=== PATIENT | male | born 1955 | race Caucasian/White ===

== ENCOUNTER 2020-07-28 02:47 | Inpatient (IN) | payer SELFPAY ==
[~2020-07-28] VITALS: Ht 182.9 cm; Wt 90.9 kg
--- NOTE | ~2020-07-28 | HEMODYNAMI ---
PATIENT:CARMELO MACDONALD MEDICAL RECORD: [id number] : 57 LOCATION:[facility] D.2123 [facility]# [id number] ADMISSION DATE: 07/28/20 Generatedon:111:24 Patient name: CARMELO MACDONALD Patient #: [id number] SSN: [id number] : 1955 Date of study: 07/29/2020 Page: Of Hemodynamic Procedure Report Patient Data Patient Demographics Procedure consent was obtained First Name: CARMELO Gender: Male Last Name: TORRES : 1955 Patient #: [id number] Age: 64 year(s) Race: SSN: [id number] Additional ID: [id number] Contact details [address]: [address] [place] [address] State: [place] City: [place] Zip code: [address] Past Medical History Allergies: No known allergies Admission Admission Data Admission Date: 07/28/2020 Admission Time: 17:42 Arrival Date: 07/29/2020 Arrival Time: 0:00 Admit Source: Other Insurance Payor: None Room #: D.2123 [facility] #: [id number] Height (in.): 72 BSA: 2.13 (m2) Height (cm.): 182.88 BMI: 27.18 (kg/m2) Weight (lbs.): 200.4 Weight (kg.): 90.9 Lab Results Lab Result Date: 07/29/2020 Lab Result Time: 0:00 Biochemistry Name Units Result Min Max BUN mg/dl 18 --(---*)-- 7 18 Creatinine mg/dl 1.2 --(---*)-- 0.6 1.3 eGFR ml/min 64.88728 *-(----)-- 90 120 NONAFRICAN Troponin l ng/ml 0.017 --(-*--)-- 0 0.06 CBC Name Units Result Min Max Hematocrit % 41.1 -*(----)-- 42 54 Hemoglobin g/dl 14.1 --(*---)-- 13.5 17.5 Procedure Procedure Types Cath Procedure Diagnostic Procedure [facility] w/Coronaries FFR/IVUS FFR Initial Sedation Charges Moderate Sedation 25-39 minutes PCI Procedure Coronary Stent Coronary Stent Initial Hemochron ACT Test Procedure Description Procedure Date Procedure Date: 07/29/2020 Procedure Start Time: 10:52 Procedure End Time: 11:20 Procedure Staff Name Function Phillip Garza MD Performing Physician Genevieve Ortez RT Monitor Yareli Prater RT Scrub Aureliano Moon RN Nurse Procedure Data Cath Procedure Fluoroscopy Diagnostic fluoroscopy Total fluoroscopy Time: 7.4 time: 7.4 min min Diagnostic fluoroscopy Total fluoroscopy dose: 890 dose: 890 mGy mGy Contrast Material Contrast Material Type Amount (ml) Isovue 370 147 Entry Location Entry Primary Successful Side Size Upsize Upsize Entry Closure Succes sful Closure Location (Fr) 1 (Fr) 2 (Fr) Remarks Device Remarks Femoral Right 5 Fr 6 Fr Exoseal artery Short Estimated blood loss: 10 ml Diagnostic catheters Device Type Used For End Catheter Placement MULTIPACK JL 4.0 5Fr Procedure catheter MULTIPACK 3DRC 5Fr Procedure catheter MULTIPACK Pigtail 5 Fr catheter DIAGNOSTIC 6Fr JL 4.0 Procedure catheter ([id number]) Procedure Complications No complications Procedure Medications Medication Administration Route Dosage 0.9% NaCl I.V. 100 ml/hr Oxygen etCO2 Nasal cannula 2 l/min Heparin Flush Bag added to field 2 bags (1000units/500ml NS) Lidocaine 2% added to field 20 Versed I.V. 1 mg Fentanyl I.V. 50 mcg Heparin Bolus I.V. 5000 units Integrilin (Bolus I.V. 8.5 ml 2mg/ml) Integrilin (Bolus wasted 1.5 ml 2mg/ml) Versed I.V. 1 mg Fentanyl I.V. 50 mcg Plavix P.O. 600 mg Hemodynamics Rest BSA: 2.13 (m2) HGB: 14.1 (g/dl) O2 Consumption: Estimated: 255.8 (ml/min) O2 Con sumption indexed: Estimated:120.09 (ml/min/m) Heart Rate: 78 (bpm) Pressure Samples Time Site Value (mmHg) Purpose Heart Use Rate(bpm) 10:58 LV 72/5,5 Snapshot 75 Gradients Valve Time Site Site Mean SEP/DFP Peak To Heart Use 1 2 (mmHg) (sec/min) Peak Rate (mmHg) (bpm) Aortic 10:58 LV AO 74 Snapshots Pre Cath Intra NCS Post Cath Vital Signs Time Heart Resp SPO2 etCO2 NIBP (mmHg) Rhythm Pain Sedation Rate (ipm) (%) (mmHg) Status Level (bpm) 10:50:45 78 19 87 56.2 116/69(84) NSR 0 (11) 10(A) , No pain 10:54:53 78 18 91 36 123/71(92) NSR 0 (11) 10(A) , No pain 10:59:03 76 20 80 33 122/70(94) NSR 0 (11) 10(A) , No pain 11:03:11 76 20 86 47.2 120/78(95) NSR 0 (11) 10(A) , No pain 11:07:21 77 19 88 35.9 119/69(94) NSR 0 (11) 10(A) , No pain 11:11:27 80 21 91 33.7 131/81(99) NSR 0 (11) 10(A) , No pain 11:15:37 77 22 93 46.5 140/81(109) NSR 0 (11) 10(A) , No pain 11:19:46 77 21 94 42.7 153/85(122) NSR 0 (11) 10(A) , No pain 11:23:56 75 22 92 32.9 132/85(110) NSR 0 (11) 10(A) , No pain Medications Time Medication Route Dose Verified Delivered Reason Notes Effectiveness by by 10:49:36 0.9% NaCl I.V. 100 Aureliano Aureliano Per physician ml/hr Red Moon RN RN 10:49:46 Oxygen etCO2 2 Aureliano Aureliano for low 02 sats Nasal l/min Red Moon cannula RN RN 10:49:59 Heparin Flush added 2 Aureliano Aureliano used for Bag to bags Red Moon procedure (1000units/500ml field SAWYER RN NS) 10:50:08 Lidocaine 2% added 20ml Aureliano Aureliano for local to vial Red Moon anesthetic field SILVERIO SAWYER 10:53:12 Versed I.V. 1 mg Aureliano Aureliano for sedation Red Moon RN RN 10:53:19 Fentanyl I.V. 50 Aureliano Aureliano for sedation mcg Red Moon RN RN 11:04:59 Heparin Bolus I.V. 5000 Aureliano Aureliano for units Red Moon anticoagulation RN RN 11:05:16 Integrilin I.V. 8.5 Aureliano Aureliano for (Bolus 2mg/ml) ml Red Moon antiplatelet RN RN therapy 11:05:25 Integrilin wasted 1.5 Aureliano Aureliano to sharp's (Bolus 2mg/ml) ml Red Moon RN RN 11:06:25 Versed I.V. 1 mg Aureliano Aureliano for sedation Red Moon RN RN 11:17:05 Fentanyl I.V. 50 Aureliano Aureliano for sedation mcg Red Moon RN RN 11:20:21 Plavix P.O. 600 Aureliano Aureliano for mg Red Moon antiplatelet RN RN therapy Procedure Log Time Note 10:29:19 Informed consent obtained and on chart 10::30 Diagnostic Cath Status : Urgent 10:29:59 Admit Source: Other 10:30:01 ACC Patient presents with Unstable Angina CCS Anginal Class 2--Slight limitation of ordinary activity. 10:30:04 Procedure Status Urgent Heart Cath (IP). 10:30:06 Aureliano Moon RN sent for patient. Start room use. 10:30:15 Time tracking: Regular hours (M-F 7:00 - 5:00) 10:30:19 Plan of Care:Hemodynamics will remain stable., Cardiac rhythm will remain stable., Comfort level will be maintained., Respiratory function will remain adequate., Patient/ family verbilizes understanding of procedure., Procedure tolerated without complication., Recovers from procedure without complications.. 10:30:23 Alarms reviewed by R. N. 10:30: Sharps counted by scrub and verified by R.N. 10:30:27 Stress Test: no; N/A ? 10:30:33 Arrival Date: 07/29/2020 12:00:00 AM 10:32:05 Insurance Payor : None 10:34:19 Lab Result : BUN 18 mg/dl 10:34:19 Lab Result : Hemoglobin 14.1 g/dl 10:34:19 Lab Result : eGFR NONAFRICAN 64.97735 ml/min 10:34:19 Lab Result : Creatinine 1.2 mg/dl 10:34:19 Lab Result : Troponin l 0.017 ng/ml 10:34:19 Lab Result : Hematocrit 41.1 % 10:36:08 Patient Height : 72 inches 10:36:12 Patient Weight : 200.4 lbs 10:36:29 Risk of Mortality: 0.1 10:36:32 Risk of blood transfusion: .1 10:36:34 Risk of FAUSTINA: 0.4 10:36:37 Lab results completed and on chart. 10:37:24 Patient received from Med II to CCL 2 Alert and oriented. Tansferred to table in Supine position. 10:37:25 Warm blankets applied, and indira hugger turned on for patient comfort. 10:37:25 Correct patient and procedure confirmed by team. 10:37:26 ECG and BP/O2 sat monitors applied to patient. 10:37:34 H&P Date Dictated: 07/28/2020 Within 30 days and on chart.. 10:37:34 Pre-procedure instructions explained to patient. 10:37:35 Pre-op teaching completed and patient verbalized understanding. 10:37:36 Family unavailable. 10:37:38 Patient NPO since Midnight. 10:37:44 Patient allergic to No known allergies 10:37:47 Full Disclosure recording started 10:49:36 0.9% NaCl 100 ml/hr I.V. was administered by Aureliano Moon RN; Per physician; Verbal order read back and verified. 10:49:42 Vital chart was started 10:49:45 Rhythm: sinus rhythm 10:49:46 Oxygen 2 l/min etCO2 Nasal cannula was administered by Aureliano Moon RN; for low 02 sats; Verbal order read back and verified. 10:49:47 Baseline sample Acquired. 10:49:49 Is the patient allergic to Iodine/contrast media? No. 10:49:51 Was the patient premedicated? Yes 10:49:52 Is patient on blood thinner?Yes 10:49:55 ACC The patient was administered the following blood thiners within the last 24 hours: ACCLovenox 10:49:57 Patient diabetic? No. 10:49:59 Heparin Flush Bag (1000units/500ml NS) 2 bags added to field was administered by Aureliano Lorigan RN; used for procedure; Verbal order read back and verified. 10:49:59 If diabetic: On Metformin? N/A 10:50:00 ----Pre-sedation anethsthesia assessment.---- 10:50:03 Previous problem with sedation/anesthesia? No ? 10:50:06 Snore? Yes 10:50:08 Lidocaine 2% 20ml vial added to field was administered by Aureliano Moon RN; for local anesthetic; Verbal order read back and verified. 10:50:08 Sleep apnea? No 10:50:11 Deviated septum? No 10:50:11 Opens mouth fully? Yes 10:50:12 Sticks out tongue? Yes 10:50:18 Airway obstruction? Yes COPD 10:50:21 Dentures? No ? 10:50:23 Patient pain scale 0/10 ?. 10:50:29 IV patent on arrival in right antecubital with 0.9% NaCl at [facility]. 10:50:43 Right groin area was prepped with chlora-prep and draped in sterile fashion 10:50:46 Use device set Femoral Dx 10:50:47 ACIST Syringe (96627) opened to sterile field. 10:50:48 Bag Decanter (2002S) opened to sterile field. 10:50:48 Medline Cath Pack ([id number]) opened to sterile field. 10:50:49 ACIST Hand Control (53589) opened to sterile field. 10:50:50 ACIST Manifold (33822) opened to sterile field. 10:50:51 DIAGNOSTIC Multipack 5Fr catheter set (KC6125) opened to sterile field. 10:50:52 SHEATH 5FR [place] (XLC412) opened to sterile field. 10:50:52 EMERALD Guide Wire (967-026) opened to sterile field. 10:50:54 Tegaderm 4 x 4 (1626W) opened to sterile field. 10:51:00 --------ALL STOP TIME OUT------ 10:51:01 Final Timeout: patient, procedure, and site verified with staff and physician. All members of the team are in agreement. 10:51:02 Right groin site verified by team. 10:51:05 Fire Safety Assessment: A--An alcohol-based skin anteseptic being used preoperatively., C--Open oxygen or nitrous oxide is being used., D--An ESU, laser, or fiber-optic light is being used. 10:51:08 Physical assessment completed. ASA score P 2 - A patient with mild systemic disease as per Phillip Garza MD. 10:51:12 2) 60-89 Mildly reduced kidney function, and other findings (as for stage 1) point to kidney disease. 10:51:14 Maximum allowable contrast dose (3.7 X eGFR X 0.75)180 ml. 10:51:17 Sedation plan: IV Moderate Sedation Medication:Versed, Fentanyl 10:52:04 Procedure started. 10:52:17 Local anesthetic to right femoral artery with Lidocaine 2% by Phillip Garza MD.INITIAL ACCESS ONLY 10:52:57 A 5 Fr sheath was inserted into the Right Femoral artery 10:53:05 Zero performed for pressure channel P1 10:53:12 Versed 1 mg I.V. was administered by Aureliano Moon RN; for sedation; Verbal order read back and verified. 10:53:13 A MULTIPACK JL 4.0 5Fr catheter was advanced over the wire and used for Procedure. 10:53:19 Fentanyl 50 mcg I.V. was administered by Aureliano Moon RN; for sedation; Verbal order read back and verified. 10:54:12 LCA angiography performed. 10:54:14 Injector settings: Ml/sec: 3, Volume: 6, 10:55:35 Catheter removed. 10:55:40 A MULTIPACK 3DRC 5Fr catheter was advanced over the wire and used for Procedure. 10:55:57 RCA angiography performed. 10:56:00 Injector settings: Ml/sec: 3, Volume: 6, 10:56:20 ACCDominant side:Right 10:56:24 Catheter removed. 10:56:57 A MULTIPACK Pigtail 5 Fr catheter was advanced over the wire and used for . 10:58:04 LV gram done using WILLS 10:58:20 LV hemodynamics recorded. 10:58:24 Injector settings: Ml/sec: 5, Volume: 15, 10:58:30 EF : 55 % 10:58:35 Catheter removed. 10:58:36 Proceeding to intervention. 10:58:40 Use device set PAOLA PCI 10:58:44 INFLATOR Merit BasixCompak (LT7718) opened to sterile field. 10:58:46 SHEATH 6FR [place] (VBE303) opened to sterile field. 10:59:12 Sheath upsized to a 6 Fr Short. 11:00:47 A DIAGNOSTIC 6Fr JL 4.0 catheter ([id number]) was advanced over the wire and used for Procedure. 11:00:52 [place] OmniWire (04463) opened to sterile field. 11:01:00 6 Fr JL 4 guide catheter was inserted over the wire 11:02:47 Pressure wire advanced. 11:04:38 Wire advanced across lesion. 11:04:59 Heparin Bolus 5000 units I.V. was administered by Aureliano Moon RN; for anticoagulation; Verbal order read back and verified. 11:05:16 Integrilin (Bolus 2mg/ml) 8.5 ml I.V. was administered by Aureliano Moon RN; for antiplatelet therapy; Verbal order read back and verified. 11:05:25 Integrilin (Bolus 2mg/ml) 1.5 ml wasted was administered by Aureliano Moon RN; to sharp's; Verbal order read back and verified. 11:06:25 Versed 1 mg I.V. was administered by Aureliano Moon RN; for sedation; Verbal order read back and verified. 11:07:19 The MONTEZ RX 3.5 x 22 stent ([id number]) was advanced then removed because of failure to cross lesion 11:07:26 Stent catheter was removed intact over wire. 11:08:52 Inflate balloon Inflation number: 1 A EUPHORA 3.0 x 20 Balloon ([id number]) was prepped and advanced across the Prox LAD , then inflated to 12 TONNY for 0:20 (min:sec) . 11:09:27 Inflation number: 2 The EUPHORA 3.0 x 20 Balloon ([id number]) was reinflated across the Prox LAD , to 12 TONNY for 0:10 (min:sec) . 11::47 Balloon removed over the wire. 11:11:35 Place stent Inflation Number: 3 A MONTEZ RX 3.5 x 22 stent ([id number]) was prepped and advanced across the Prox LAD . The stent was deployed at 14 TONNY for 0:31 (min:sec) . 11:12:01 Stent catheter was removed intact over wire. 11:12:06 Pressure wire advanced. 11:12:06 Wire advanced across lesion. 11:15:03 pLAD lesion measured at .84 with IFR 11:16:19 Inflation number: 4 The stent balloon was then re-inflated across the Prox LAD to 12 TONNY for 0:00 (min:sec) . 11:16:54 pLAD lesion measured at .85 with IFR 11:17:05 Fentanyl 50 mcg I.V. was administered by Aureliano Moon RN; for sedation; Verbal order read back and verified. 11:17:34 Stent catheter was removed intact over wire. 11:17:35 Wire removed. 11:17:36 Guide catheter removed. 11:17:40 EXOSEAL 6Fr (EX600) opened to sterile field. 11:17:52 Sheath removed intact; hemostasis achieved with Exoseal to the Right Femoral artery. 11:18:29 Procedure ended.(Physican Out) 11:18:36 Fluoroscopy time 07.40 minutes. 11:18:39 Fluoroscopy dose: 890 mGy 11:18:39 Flurop Dose total: 890 11:18:44 Dose Area Product 45236 mGy/cm. 11:18:49 Contrast amount:Isovue 370 147ml. 11:18:51 Maximum allowable dose exceeded? No. 11:18:52 Sharps counted by scrub and verified by R.N. 11:19:00 Post-op/insertion site Right Femoral artery dressed using a 4 x 4 and Tegaderm. 11:19:05 Post right femoral artery:stable, soft, clean and dry 11:19:06 Post Procedure Pulses reassessed and unchanged 11:19:09 Post procedure: right dorsailis pedis pulse 1+ Palpable, but thready & weak; easily obliterated. 11:19:12 Post-procedure physical assessment completed. ASA score P 2 - A patient with mild systemic disease as per Phillip Garza MD. 11:19:16 Post procedure rhythm: unchanged. 11:19:19 Estimated blood loss: 10 ml 11:19:20 Post procedure instruction explained to patient.Patient verbalizes understanding. 11:19:20 Patient needs reinforcement of post procedure teaching. 11:19:47 Procedure type changed to Cath procedure, Diagnostic procedure, LHC, LHC w/Coronaries, FFR/IVUS, FFR Initial, Sedation Charges, Moderate Sedation 25-39 minutes, PCI procedure, Coronary Stent, Coronary Stent Initial, Hemochron ACT Test 11:20:11 Procedure and supply charges have been captured, reviewed, submitted and are correct. 11:20:15 Procedure Complication : No complications 11:20:19 [facility] Findings: MVD- PCI performed (see procedure note) 11:20:20 Operative report dictated upon procedure completion. 11:20:20 See physician's report for complete and final results. 11:20:21 Plavix 600 mg P.O. was administered by Aureliano Moon RN; for antiplatelet therapy; Verbal order read back and verified. 11:20:23 Report given to [facility]. 11:20:26 Patient transfered to [facility] with Bed. 11:20:28 Procedure ended. 11:20:28 Full Disclosure recording stopped 11:20:36 ACC-PCI Only Patient was given prescriptions, or instructed by Phillip Garza MD to start/continue the following medications upon discharge: Plavix 11:20:38 End room use (Document Last) 11:20:47 End room use (Document Last) 11:21:02 End room use (Document Last) 11:23:31 ACT drawn and resulted at 216 seconds. (normal therapeutic range 180-240 seconds). 11:24:51 Vital chart was stopped Intervention Summary Intervention Notes Time ActionType Lesion and Equipment Used Action# Pressure Duration Attributes 11:07:19 Discard MONTEZ RX 3.5 x Stent 22 stent ([id number]) 11:08:52 Inflate Prox LAD EUPHORA 3.0 x 1 12 00:20 balloon 20 Balloon ([id number]) 11:09:27 Reinflate Prox LAD EUPHORA 3.0 x 2 12 00:10 balloon 20 Balloon ([id number]) 11:11:35 Place stent Prox LAD MONTEZ RX 3.5 x 3 14 00:31 22 stent ([id number]) 11:16:19 Reinflate Prox LAD MONTEZ RX 3.5 x 4 12 00:00 stent 22 stent balloon ([id number]) Device Usage Item Name Manufacture Quantity Catalog Hospital Part [facility] Lot# / Number Charge Number Stock Stock Serial# Code ACIST Syringe Acist 1 25128 509266 337006 282812 20 (06831) Etherpad Bag Decanter Microtek 1 660523 60653 206145 5 (2001S) Medical Inc. Medline Cath Medline 1 [id number] 297807 41237 897420 5 Pack ([id number]) ACIST Hand Acist 1 37118 421542 119312 420687 5 Control Medical (93898) Systems Inc ACIST Manifold Acist 1 60848 127760 106597 628004 5 (19407) Medical Systems Inc DIAGNOSTIC Cardinal 1 TT3150 420116 06087 671706 30 Multipack 5Fr Health catheter set (JJ3914) SHEATH 5FR Terumo 1 HHP933 305520 543036 044741 5 [place] (VBP425) EMERALD Guide Cardinal 1 502-455 928440 503745 928922 5 Wire (502-455) HemoSonics Tegaderm 4 x 4 3M 1 1626W 044402 924992 198681 5 (1626W) MULTIPACK JL Cardinal 1 454052 5 4.0 5Fr HemoSonics catheter MULTIPACK 3DRC Cardinal 1 835327 5 5Fr catheter Health MULTIPACK Cardinal 1 057870 5 Pigtail 5 Fr Health catheter INFLATOR Merit Merit 1 VI2552 204787 207734 221595 15 BasixTraceSecurity Medical (IK9126) SHEATH 6FR Terumo 1 ESO735 083920 305167 035569 40 [place] (XDY405) DIAGNOSTIC 6Fr Cardinal 1 [id number] 760110 678985 661994 1 JL 4.0 Health catheter (106496E) [place] 1 5445658 045371 27628 9910 5 OmniWire (31651) MONTEZ RX 3.5 x Medtronic 1 [id number] 283032 1197779 409112 5 [id number] 22 stent ([id number]) EUPHORA 3.0 x Medtronic 1 [id number] 148074 695879 616742 5 [id number] 20 Balloon ([id number]) EXOSEAL 6Fr Cardinal 1 EX600 431205 633923 063510 10 (EX600) Health Signature Audit [place] Stage Time Signature Unsigned Intra-Procedure 07/29/2020 Genevieve Ortez 11:20:47 AM RT(R) Intra-Procedure 07/29/2020 Aureliano 11:21:02 AM Lorigan RN Intra-Procedure 07/29/2020 Phillip Chi 11:24:49 DAYANARA Graham MD Signatures Performing Physician : Signature : Phillip Garza MD Date : Time : Monitor : Genevieve Ortez Signature : RT Date : Time : Nurse : Aureliano Rossigan Signature : RN Date : Time : [facility] [address] [place] [address]
[2020-07-28] MEDS ORDERED: ALBUTEROL SULF8.5 GM INH (02:53)
[2020-07-28] MEDS ORDERED: ADVAIR HFA 230-12 GM INH (02:54)
[2020-07-28 03:30] LABS: BILIRUBIN NEGATIVE (NEGATIVE); KETONE NEGATIVE mg/dL (< 1+); NITRITE NEGATIVE (NEGATIVE); UROBILINOGEN 8 mg/dL (< 2); WHITE CELLS - URINE <1 HPF (0-1)
[2020-07-28 03:37] LABS: UDS - AMPHET NEGATIVE QUAL (NEGATIVE); UDS - BARB NEGATIVE QUAL (NEGATIVE); UDS - BENZO NEGATIVE QUAL (NEGATIVE); UDS - COCAINE NEGATIVE QUAL (NEGATIVE); UDS - OPIATE POSITIVE QUAL (NEGATIVE); UDS - PCP NEGATIVE QUAL (NEGATIVE); UDS - THC NEGATIVE QUAL (NEGATIVE)
[2020-07-28 03:51] LABS: BASOPHILS 0.2 % (0-2); EOSINOPHILS 4.3 % (0-7); HEMATOCRIT 41.1 % (42.0-54.0); HEMOGLOBIN 14.1 g/dL (13.5-17.5); IMMATURE GRANULOCYTES 0.3 % (0-5); LYMPHOCYTE ABS# 1.52 10x3/uL (1.32-3.57); LYMPHOCYTES 23.2 % (15-50); MCH 30.7 pg (26.0-34.0); MCHC 34.3 g/dL (31.0-37.0); MCV 89.5 fL (80.0-100.0); MEAN PLATELET VOLUME 10.2 fL (7.4-10.4); MONOCYTES 12.5 % (2-11); NEUTROPHILS 59.5 % (40-80); PLATELET COUNT 136 10x3/uL (130-400); RBC 4.59 10x6/uL (4.20-6.10); RDW 12.4 % (11.5-14.5); WBC 6.6 10x3/uL (4.8-10.8)
[2020-07-28 03:58] LABS: APTT 38.2 SECONDS (22.8-39.4); INR 1.2 (0.85-1.17); PROTIME 14.1 SECONDS (11.6-15.0)
[2020-07-28 04:06] LABS: ALKALINE PHOSPHATASE 101 U/L (30-120); ALT (SGPT) 43 U/L (10-68); BILIRUBIN - TOTAL 1.15 mg/dL (0.2-1.3); CALC OSMOLALITY 273 mosm/kg (275-300); CALCIUM 8.9 mg/dL (8.5-10.1); CHLORIDE - SERUM 100 mmol/L (98-107); CREATININE - SERUM 1.2 mg/dL (0.6-1.3); GLUCOSE 105 mg/dL (74-106); POTASSIUM - SERUM 4.7 mmol/L (3.5-5.1); PROTEIN - SERUM 7.7 g/dL (6.4-8.2); SODIUM 136 mmol/L (136-145); UREA NITROGEN 18 mg/dL (7-18); eGFR NON AFRICAN AMERICAN 65 mL/min (90-120)
[2020-07-28 04:07] LABS: TROPONIN-I < 0.017 ng/mL (0.000-0.060)
[2020-07-28 04:13] LABS: ALBUMIN 3.3 g/dL (3.4-5.0); CARBON DIOXIDE 28.9 mmol/L (21.0-32.0)
[2020-07-28 10:45] VITALS: BP 118/74
--- NOTE | 2020-07-28 13:07 | NUR ---
PATIENT ARRIVED TO ROOM 2130 VIA WHEELCHAIR FROM ER WITH KARIHER. NO CURRENT PAIN OR DISTRESS NOTED. SHORTNESS OF BREATH IS CONTROLLED ON ROOM AIR O2 SAT IS 97. RESPIRATIONS EVEN AND UNLABORED. TELE PLACED. HAS RAN SINUS RYTHYM IN ER. LUNG SOUNDS CLEAR LOWER LOBES WHEEZE. HEART SOUNDS REGULAR RATE AND RYTHYM. IV TO LEFT FOREARM PATENT. NO SKIN ISSUES.
[2020-07-28 13:29] VITALS: BP 117/52; Ht 182.9 cm; Wt 90.9 kg
[2020-07-28 16:00] VITALS: BP 138/75
[2020-07-28 20:35] VITALS: BP 113/64
[2020-07-29 01:21] VITALS: BP 111/66
--- NOTE | 2020-07-29 04:43 | NUR ---
HAS BEEN NPO SINCE MIDNIGHT FOR POSSIBLE HEART CATH THIS AM.
--- NOTE | 2020-07-29 06:40 | NUR ---
PT ARGUMENTATIVE WITH MID LEVEL BUSINESS ANALYST. SAYS HIS BLOOD HAS BEEN COLLECTED FROM HIS PIV X 3 DAYS. SPOKE WITH PATIENT THAT THE POLICY IS TO NOT DRAW FROM PIV LINES, BUT IF HE HAD A PICC OR A CVL WE WOULD. BE ANGRY. TELLING NURSE SHE DOESN'T KNOW WHAT SHE IS TALKING ABOUT. HE DID ALLOW MID LEVEL BUSINESS ANALYST TO DRAW AM LABS. HE IS NPO FOR POSSIBLE HEART CATH THIS AM.
[2020-07-29 08:59] LABS: BASOPHILS 0.6 % (0-2); EOSINOPHILS 5.1 % (0-7); HEMATOCRIT 37.8 % (42.0-54.0); HEMOGLOBIN 12.7 g/dL (13.5-17.5); LYMPHOCYTES 17.2 % (15-50); MCH 30.2 pg (26.0-34.0); MCHC 33.7 g/dL (31.0-37.0); MCV 89.5 fL (80.0-100.0); MEAN PLATELET VOLUME 8.2 fL (7.4-10.4); MONOCYTES 10.7 % (2-11); NEUTROPHILS 66.4 % (40-80); PLATELET COUNT 161 10x3/uL (130-400); RBC 4.22 10x6/uL (4.20-6.10)
[2020-07-29 09:02] LABS: ANION GAP 9.5 mmol/L (8-16); BILIRUBIN - TOTAL 0.39 mg/dL (0.2-1.3); CALCIUM 8.4 mg/dL (8.5-10.1); CARBON DIOXIDE 30.7 mmol/L (21.0-32.0); CREATININE - SERUM 1.3 mg/dL (0.6-1.3); MAGNESIUM - SERUM 2.3 mg/dL (1.8-2.4); PHOSPHOROUS 3.8 mg/dL (2.5-4.9); POTASSIUM - SERUM 4.2 mmol/L (3.5-5.1); PROTEIN - SERUM 6.9 g/dL (6.4-8.2)
[2020-07-29 09:33] LABS: LDL-HDL RATIO 2.6 ratio (1.5-3.5)
[2020-07-29 09:43] VITALS: BP 117/52
[2020-07-29] MEDS ORDERED: PLAVIX75 MG PO (12:02)
--- NOTE | 2020-07-29 14:30 | MORECARE ---
CASE MANAGEMENT DISCHARGE SUMMARY PATIENT: CARMELO MACDONALD UNIT: [id number] ADM DATE: 07/28/20 AGE: 64 : 57 SEX: M ROOM/BED: D.2123 AUTHOR: ELIEZER,DOC PHYSICIAN: REFERRING PHYSICIAN: MIRTA HERNANDEZ MD DATE OF SERVICE: 07/29/20 Case Management Discharge Planning Summary COMMENTS ENTERED DATE: 07/29/20 14:28 CT COMMENT TYPE: Discharge Planning REVIEWER: Courtney Clarke PT DISCHARGED FROM [employer], NO NEEDS DCP REVIEW SUMMARY ANTICIPATED D/C DATE: 07/29/2020 EXPECTED LOS : 1 CASE STATUS: DCP Initiated INITIAL REVIEW: 07/28/2020 INITIAL REVIEWER: Courtney Clarke FINAL DISCHARGE DISPOSITION: 01 : Home or Self Care (Routine Discharge) FINAL REVIEWER: FINAL REVIEW DATE: DCP Focus Questions & Answers QUESTION: ANSWER : PATIENT: CARMELO MACDONALD ENCOUNTER: [id number] MEDICAL RECORD#: [id number] ADMISSION DATE: 07/28/2020 DISCHARGE DATE: ATTENDING MD: MIRTA NICOLE : AGE: 64 MARITAL STATUS: S DC PLAN ID: [id number] FACILITY: [facility] PRINTED ON: 07/29/20 14:29 CT All edits/amendments must be made on the electronic document DICTATION DATE: 07/29/201428 WIRE FRAME MAKER: TELLO 07/29/201428 RPT#: [id number] DC DATE: STATUS: ADM IN [facility] [address] [place] [address] END OF REPORT
--- NOTE | 2020-07-29 16:10 | NUR ---
NURSE REVIEWS DC INSTRUCTIONS, REMOVES IV WITH CATH TIP INTACT. PATIENT GIVEN PRESCRIPTIONS AND REVIEWED DC APPTS. DAUGHTERS IN ROOM.
--- NOTE | 2020-07-29 16:20 | NUR ---
PATIENT WHEELED OUT AT THIS TIME WITH BELJEFFRYS IN HAND. LEAVING WITH DAUGHTERS
--- NOTE | 2020-07-29 16:54 | MORECARE ---
CASE MANAGEMENT DISCHARGE SUMMARY PATIENT: CARMELO MACDONALD UNIT: [id number] ADM DATE: 07/28/20 AGE: 64 : 56 SEX: M ROOM/BED: D.2123 AUTHOR: ELIEZER,DOC PHYSICIAN: REFERRING PHYSICIAN: MIRTA HERNANDEZ MD DATE OF SERVICE: 07/29/20 Case Management Discharge Planning Summary COMMENTS ENTERED DATE: 07/29/20 14:28 CT COMMENT TYPE: Discharge Planning REVIEWER: Courtney Clarke PT DISCHARGED FROM [employer], NO NEEDS DCP REVIEW SUMMARY ANTICIPATED D/C DATE: 07/29/2020 EXPECTED LOS : 1 CASE STATUS: DCP Initiated INITIAL REVIEW: 07/28/2020 INITIAL REVIEWER: Courtney Clarke FINAL DISCHARGE DISPOSITION: 01 : Home or Self Care (Routine Discharge) FINAL REVIEWER: FINAL REVIEW DATE: DCP Focus Questions & Answers QUESTION: ANSWER : PATIENT: CARMELO MACDONALD ENCOUNTER: [id number] MEDICAL RECORD#: [id number] ADMISSION DATE: 07/28/2020 DISCHARGE DATE: 07/29/2020 ATTENDING MD: MIRTA NICOLE : AGE: 64 MARITAL STATUS: S DC PLAN ID: [id number] FACILITY: [facility] PRINTED ON: 07/29/20 16:54 CT All edits/amendments must be made on the electronic document DICTATION DATE: 07/29/201653 BUTTONHOLE MARKER: TELLO 07/29/201653 RPT#: [id number] DC DATE:07/29/20 STATUS: DIS IN [place] [address] [place] [address] END OF REPORT
--- NOTE | 2020-07-30 13:53 | MORECARE ---
CASE MANAGEMENT DISCHARGE SUMMARY PATIENT: CARMELO MACDONALD UNIT: [id number] ADM DATE: 07/28/20 AGE: 64 : 57 SEX: M ROOM/BED: D.2123 AUTHOR: ELIEZER,DOC PHYSICIAN: REFERRING PHYSICIAN: MIRTA HERNANDEZ MD DATE OF SERVICE: 07/30/20 Case Management Discharge Planning Summary COMMENTS ENTERED DATE: 07/29/20 14:28 CT COMMENT TYPE: Discharge Planning REVIEWER: Courtney Clarke PT DISCHARGED FROM [facility], NO NEEDS DCP REVIEW SUMMARY ANTICIPATED D/C DATE: 07/29/2020 EXPECTED LOS : 1 CASE STATUS: DCP Initiated INITIAL REVIEW: 07/28/2020 INITIAL REVIEWER: Courtney Clarke FINAL DISCHARGE DISPOSITION: 01 : Home or Self Care (Routine Discharge) FINAL REVIEWER: FINAL REVIEW DATE: DCP [employer] Questions & Answers QUESTION: ANSWER : PATIENT: CARMELO MACDONALD ENCOUNTER: [id number] MEDICAL RECORD#: [id number] ADMISSION DATE: 07/28/2020 DISCHARGE DATE: 07/29/2020 ATTENDING MD: MIRTA NICOLE : AGE: 64 MARITAL STATUS: S DC PLAN ID: [id number] FACILITY: [facility] PRINTED ON: 07/30/20 13:53 CT All edits/amendments must be made on the electronic document DICTATION DATE: 07/30/20 135 HEAD TEACHER: TELLO 07/30/20 1353 RPT#: [id number] DC DATE:07/29/20 STATUS: DIS IN [place] [address] [place] [address] END OF REPORT
--- NOTE | 2020-07-30 14:32 | OP ---
PATIENT NAME: CARMELO MACDONALD MEDICAL RECORD: [id number] :57 LOCATION:D. D.3 ADMISSION DATE:07/28/20 SURGEON: BART GUEVARA MD DATE OF OPERATION: 07/29/2020 PROCEDURE: Left heart catheterization, selective coronary angiography plus IFR wire plus PTCA stenting to the LAD. FINDINGS: Left ventriculography in 30-degree WILLS view: Normal wall motion, normal systolic function. CORONARY ANATOMY: Left main: Free of disease. LAD: Has an 80% stenosis in the mid portion. Circumflex: The circumflex is free of disease. Right coronary artery: Has luminal irregularities. PLAN: Intervention to LAD momentarily. Using a IFR wire, placed across the lesion, 80% LAD. Pre-deployment balloon was a 3.0 x 15 mm Bertie. Next, stent deployed was a 3.5 x 22 mm [place] drug-eluting stent up to 14 atmospheres. Initial IFR wire was 0.84. There was no evidence of dissection, no evidence of contrast hanging up. Due to high progression of inflation in the distal portion of the stent, IFR wire has been 0.6. Given angiographically satisfactory result and no obvious dissection or other lesion, the procedure was stopped at this time. IMPRESSION: Successful PTCA stenting of the LAD. Sheath closed with ExoSeal device. Plavix loaded in the lab. Heparin and Integrilin were used during the case. TRANSINT:[id number] Voice Confirmation ID: [id number] DOCUMENT ID: [id number] BART GUEVARA MD at 1432 CC: [id number] DICTATION DATE: 07/29/20 1122 DIPLOMATIC OFFICER: 07/29/20 1317 DIS IN 07/29/20 [facility] [address] [place] [address]
== END 2020-07-29 16:49 | disposition home or self-care (01) | DRG 247 ==
LOC: D.ER 02:47 → D.EDHOLD 03:36 → OBSVTIME 03:36 → D.M2 12:29
PROVIDERS: Family Medicine; Internal Medicine Cardiovascular Disease; ADMIT Emergency Medicine; ATTEND Emergency Medicine
PROC: 4A023N7 Measurement of Cardiac Sampling and Pressure, Left Heart, Percutaneous Approach (ICD-10-PCS; 2020-07-29)
PROC: B2111ZZ Fluoroscopy of Multiple Coronary Arteries using Low Osmolar Contrast (ICD-10-PCS; 2020-07-29)
PROC: B2151ZZ Fluoroscopy of Left Heart using Low Osmolar Contrast (ICD-10-PCS; 2020-07-29)
PROC: 027034Z Dilation of Coronary Artery, One Artery with Drug-eluting Intraluminal Device, Percutaneous Approach (ICD-10-PCS; principal; 2020-07-29 14:30)
PROC: 4A033BC Measurement of Arterial Pressure, Coronary, Percutaneous Approach (ICD-10-PCS; 2020-07-29 14:30)
DX: I25.110 Atherosclerotic heart disease of native coronary artery with unstable angina pectoris (principal); J44.9 Chronic obstructive pulmonary disease, unspecified; I10 Essential (primary) hypertension; R61 Generalized hyperhidrosis; Z85.51 Personal history of malignant neoplasm of bladder